=== PATIENT | male | born 1995 | race Two or more races ===

== ENCOUNTER 2023-12-02 08:29 | Emergency (ER) | payer OTHER ==
[~2023-12-02] VITALS: Ht 154.9 cm; Wt 69.3 kg
[2023-12-02 09:00] VITALS: PULSE 92; RESP 21; TEMP 97.4; O2SAT 97
[2023-12-02 09:03] LABS: Urine Bacteria None Seen /hpf (None Seen)
[2023-12-02 09:22] LABS: Urine Blood 3+ /uL (Negative); Urine Clarity Clear (Clear); Urine Color Yellow (Yellow); Urine Mucus MODERATE (None Seen); Urine Protein, UAD 1+ (Negative); Urine Specific Gravity 1.032 (1.001-1.035); Urine Urobilinogen 2 mg/dL (Negative); Urine WBC 1 /hpf (0 - 3)
[2023-12-02 09:33] LABS: Basophils # (auto) 0 10 ^3/uL (0-0.2); Basophils % (auto) 0.3 % (0.0-2.0); Eosinophils # (auto) 0.1 10 ^3/uL (0-0.8); Eosinophils % (auto) 0.6 % (0.0-7.0); Hematocrit 44.4 % (41.0-53.0); Lymphocytes # (auto) 1.1 10 ^3/uL (0.4-5.4); Lymphocytes % (auto) 13.4 % (10.0-50.0); Mean Corpuscular Hemoglobin 30.7 pg (28.0-32.0); Mean Corpuscular Hgb Conc. 33.8 g/dL (32.0-36.0); Mean Corpuscular Volume 90.9 fL (80.0-100.0); Monocytes # (auto) 0.4 10 ^3/uL (0-1.3); Monocytes % (auto) 4.6 % (0.0-12.0); Neutrophils # (auto) 6.9 10 ^3/uL (1.6-8.6); Neutrophils % (auto) 81.1 % (37.0-80.0); Red Blood Cells 4.88 10^6/uL (4.5-5.90); Red Cell Distribution Width 13.3 % (11.8-14.3); White Blood Cell 8.5 10^3/uL (4.4-10.8)
[2023-12-02 09:38] LABS: Chloride 107 mmol/L (98-107); Potassium 4.3 mmol/L (3.5-5.1); Sodium 139 mmol/L (136-145)
[2023-12-02 09:39] LABS: Anion Gap 6 (5-15); Carbon Dioxide 26 mmol/L (20-30)
[2023-12-02] MEDS: SODIUM CHLORIDE 0.9% 1,000 ML IV ONE (09:39)
[2023-12-02] MEDS: KETOROLAC TROMETH 30 MG/ML 1ML VIAL IV ONE (09:39)
[2023-12-02 09:44] LABS: Glucose 115 mg/dL (74-106)
[2023-12-02 09:45] LABS: BUN/Creatinine Ratio 8.3 (10.0-20.0); Blood Urea Nitrogen 9 mg/dL (9-23)
[2023-12-02] MEDS ORDERED: TAMS-35 PO (11:36)
[2023-12-02] MEDS ORDERED: IBU600T PO (11:36)
[2023-12-02] MEDS: FUROSEMIDE 20 MG/2 ML VIAL IV ONE (11:42)
[2023-12-02] MEDS: TAMSULOSIN HYDROCHLORIDE 0.4 MG CAP PO ONE (11:43)
[2023-12-02 12:00] VITALS: BP 120/76; PULSE 70; RESP 16; O2SAT 97
== END 2023-12-02 12:14 | disposition home or self-care (01) ==
LOC: ER 08:29
DX: N20.0 Calculus of kidney (principal); Z88.6 Allergy status to analgesic agent
CPT/HCPCS: 36415; 80048; 81001; 85025; 96361; 96374; 96375; 99285; J1885; J1940; J7030